=== PATIENT | male | born 1980 | race Caucasian/White ===

== ENCOUNTER 2021-05-19 19:18 | Emergency (ER) | payer BC ==
[~2021-05-19] VITALS: Ht 193 cm; Wt 79.4 kg
[2021-05-19] MEDS ORDERED: DUI500 PO (20:08)
== END 2021-05-19 20:39 | disposition home or self-care (01) ==
LOC: ER 19:18
DX: J03.90 Acute tonsillitis, unspecified (principal); R07.0 Pain in throat